=== PATIENT | female | born 1965 | race Caucasian/White ===

== ENCOUNTER 2016-10-27 13:11 | Emergency (ER) | payer OTHER ==
[2016-10-27 13:23] VITALS: RESP 18
--- NOTE | 2016-10-27 13:56 | EDPHY ---
H & P Stated Complaint: possible panic attack after shoveling snow Time Seen by Provider: 10/27/16 13:31 HPI/ROS: CHIEF COMPLAINT: Lightheaded, chest tightness, racing heart HISTORY OF PRESENT ILLNESS: The patient is a 51 y/o female arriving via EMS complaining of an episode of lightheadedness and near-syncope after shoveling snow today. She did not have symptoms while exerting herself. After being inside after shoveling, She felt like her heart was racing and then developed some lightheadedness. Later she became anxious and developed chest tightness. Her hands then became weak and shaky, which aggravated her other symptoms and felt similar to a previous panic attack. She called EMS after 15 minutes of continuing symptoms. She reports that she continued to panicky on their arrival and they measured her heart rate at 100. She says she has experienced the same symptoms previously, stating, "I get a health thing, then feel funny and then I give myself a panic attack." She has hypertension but denies diabetes , hypercholesteremia, smoking, or family history of heart disease. REVIEW OF SYSTEMS: Constitutional: No fever, no chills Eyes: No visual changes ENT: No sore throat Respiratory: No cough, no shortness of breath Cardiac: see HPI Gastrointestinal: No nausea, no vomiting, no abdominal pain Genitourinary: No hematuria, no dysuria Musculoskeletal: No leg pain or swelling Skin: No rash Neurological: see HPI Psychiatric: No depression Source: Patient - Personal History Current Tetanus/Diphtheria Vaccine: Unsure Current Tetanus Diphtheria and Acellular Pertussis (TDAP): Unsure - Medical/Surgical History PMH: Hypertension - lisinopril Hx Asthma: No Hx Chronic Respiratory Disease: No Hx Diabetes: No Hx Cardiac Disease: No Hx Renal Disease: No Hx Cirrhosis: No Hx Alcoholism: No Hx HIV/AIDS: No Hx Splenectomy or Spleen Trauma: No Other PMH: hypothyroid, htn, panic attack, - Social History Smoking Status: Never smoked Additional Social History: Nonsmoker. Chin Dr. Hedy Agustin - Physical Exam Exam: General Appearance: Alert, no distress Eyes: Pupils equal and round, no conjunctival pallor or injection ENT, Mouth: Mucous membranes moist Neck: Normal inspection Respiratory: Lungs are clear to auscultation Cardiovascular: Regular rate and rhythm Gastrointestinal: Abdomen is soft and non- tender Neurological: A&O, nonfocal, normal gait Skin: Warm and dry, no rash Extremities: Nontender, no pedal edema Psychiatric: Mood and affect normal Constitutional: Initial Vital Signs Temperature (C) 36.9 C 10/27/16 13:21 Heart Rate 79 10/27/16 13:21 Respiratory Rate 18 10/27/16 13:21 Blood Pressure 167/107 H 10/27/16 13:21 O2 Sat (%) 97 10/27/16 13:21 O2 Delivery Mode Room Air Allergies/Adverse Reactions: No Known Allergies Allergy (Unverified 10/27/16 13:21) Home Medications: Medication Instructions Recorded Levothyroxine 10/27/16 Lisinopril 10/27/16 Medical Decision Making - Diagnostics EKG Interpretation: The 12 lead EKG was interpreted by myself. EKG shows sinus rhythm rate 77 with borderline left axis deviation. See hard copy and/or "tracemaster" electronic copy for interpretation. ED Course/Re-evaluation: This is a 51 y/o female with a recent diagnosis of hypertension and previous panic attacks presenting to the ED for evaluation following an episode of lightheadedness, near-syncope, and chest tightness. She believes she had a panic attack, As this episode was similar to prior panic attacks but was concerned her symptoms did not improve and contacted 911. it is unclear whether this was primary tachycardia which led to feeling of lightheadedness or whether anxiety/panic attack was the primary etiology. Stat EKG reveals no ischemia or dysrhythmia. I do not suspect acute coronary syndrome in this patient. IV established. Labs drawn including CBC, CHEM, TSH, troponin. 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 air sampling and monitoring revealed normal sinus rhythm throughout. The patient was throughout her emergency department stay. She was encouraged to follow up with her primary care physician Sunday. Differential Diagnosis: Differential diagnosis includes though is not limited to acute coronary syndrome, SVT, ventricular dysrhythmia, thyrotoxicosis. - Data Points Laboratory Results: Laboratory Results 10/27/16 14:10 10/27/16 14:10 10/27/16 14:10 WBC 4.37 10^3/uL (3.80-9.50) RBC 4.28 10^6/uL (4.18-5.33) Hgb 15.3 g/dL (12.6-16.3) Hct 43.5 % (38.0-47.0) MCV 101.6 H fL (81.5-99.8) MCH 35.7 H pg (27.9-34.1) MCHC 35.2 g/dL (32.4-36.7) RDW 12.8 % (11.5-15.2) Plt Count 236 10^3/uL (150-400) MPV 9.1 fL (8.7-11.7) Neut % (Auto) 51.2 % (39.3-74.2) Lymph % (Auto) 33.0 % (15.0-45.0) [place] % (Auto) 11.2 % (4.5-13.0) Eos % (Auto) 3.0 % (0.6-7.6) Baso % (Auto) 1.4 % (0.3-1.7) Nucleat RBC Rel Count 0.0 % (0.0-0.2) Absolute Neuts (auto) 2.24 10^3/uL (1.70-6.50) Absolute Lymphs (auto) 1.44 10^3/uL (1.00-3.00) Absolute Monos (auto) 0.49 10^3/uL (0.30-0.80) Absolute Eos (auto) 0.13 10^3/uL (0.03-0.40) Absolute Basos (auto) 0.06 10^3/uL (0.02-0.10) Absolute Nucleated RBC 0.00 10^3/uL (0-0.01) Immature Gran % 0.2 % (0.0-1.1) Immature Gran # 0.01 10^3/uL (0.00-0.10) Sodium 142 mEq/L (134-144) Potassium 3.5 mEq/L (3.5-5.2) Chloride 104 mEq/L (97-110) Carbon Dioxide 23 mEq/l (22-31) Anion Gap 15 mEq/L (8-16) BUN 13 mg/dL (7-23) Creatinine 0.8 mg/dL (0.6-1.0) Estimated GFR > 60 Glucose 134 H mg/dL (70-100) Calcium 9.0 mg/dL (8.5-10.4) Troponin I Pending TSH Pending Departure - Departure Disposition: Home, Routine, Self-Care Clinical Impression: Lightheaded, Palpitations Condition: Good Instructions: Chest Pain (ED), Lightheadedness (ED), Palpitations (ED) Additional Instructions: Follow up with your primary care provider on Sunday. Return to the ED for any worsening of condition. Referrals: Korina Agustin MD [Medical Doctor] - As per Instructions Report Scribed for: Vani Hirsch Report Scribed by: Nichelle Loera Date of Report: 10/27/16 Time of Report: 13:56 Physician Review and Approval Statement: 10/27/16 13:56 Portions of this note were transcribed by a medical charge entry specialist. I personally performed a history, physical exam, medical decision making, and confirmed accuracy of information the transcribed note.
[2016-10-27 14:21] VITALS: O2SAT 96
[2016-10-27 14:23] LABS: % IMMATURE GRANULYOCYTES 0.2 % (0.0-1.1); ABSOLUTE IMMATURE GRANULOCYTES 0.01 10^3/uL (0.00-0.10); ADD DIFF? NO; ADD MORPH? NO; ADD SCAN? NO; ATYPICAL LYMPHOCYTE FLAG 0 (0-99); FRAGMENT RBC FLAG 0 (0-99); HEMATOCRIT 43.5 % (38.0-47.0); HEMOGLOBIN 15.3 g/dL (12.6-16.3); LEFT SHIFT FLG 0 (0-99); LIPEMIA HEMOLYSIS FLAG 90 (0-99); MEAN CELL HEMOGLOBIN 35.7 pg (27.9-34.1); MEAN CELL HEMOGLOBIN CONCENTR. 35.2 g/dL (32.4-36.7); MEAN CELL VOLUME 101.6 fL (81.5-99.8); MEAN PLATELET VOLUME 9.1 fL (8.7-11.7); PLATELET CLUMPS FLAG 10 (0-99); PLATELET COUNT 236 10^3/uL (150-400); RED BLOOD CELL COUNT 4.28 10^6/uL (4.18-5.33); RED CELL DISTRIBUTION WIDTH 12.8 % (11.5-15.2)
[2016-10-27 14:42] LABS: ANION GAP 15 mEq/L (8-16); CARBON DIOXIDE 23 mEq/l (22-31); CHLORIDE 104 mEq/L (97-110); CREATININE 0.8 mg/dL (0.6-1.0); GLOMERULAR FILTRATION RATE > 60; GLUCOSE 134 mg/dL (70-100); POTASSIUM 3.5 mEq/L (3.5-5.2); SODIUM 142 mEq/L (134-144)
[2016-10-27 14:53] LABS: TROPONIN I < 0.012 ng/mL (0-0.034)
--- NOTE | 2016-10-27 15:52 | CPEKG ---
Heart Rate: 77 RR Interval: 779 P-R Interval: 164 QRSD Interval: 92 QT Interval: 416 QTC Interval: 471 P [place]: 66 QRS [place]: -17 T Wave [place]: 16 EKG Severity - OTHERWISE NORMAL ECG - EKG Impression: SINUS RHYTHM EKG Impression: BORDERLINE LEFT AXIS DEVIATION Electronically Signed By: Vani Hirsch 28-Oct-2016 14:07:30
[2016-10-27 15:53] VITALS: BP 165/104; PULSE 76; TEMP 97.9
== END 2016-10-27 15:53 | disposition home or self-care (01) ==
LOC: EDUNIT#
DX: R42 Dizziness and giddiness (principal); R00.2 Palpitations; I10 Essential (primary) hypertension; E03.9 Hypothyroidism, unspecified